=== PATIENT | male | born 1960 | race Caucasian/White ===

== ENCOUNTER 2017-07-13 12:32 | Emergency (ER) | payer OTHER ==
--- NOTE | ~2017-07-13 | CR243 ---
[facility] A Service of [facility] RADIOLOGY TEXT RESULTS PATIENT: MILTON DAVIS LOCATION: SED : 64 UNIT #: [id number] AGE: [address]: EFRAIN HOLLOWAY SEX: M ORDER DR: [id number] [place] [id number] E MR#: [id number] Acc #: [id number] NAME: MILTON DAVIS : 1960 SEX: M STUDY DATE/TIME: 07/13/2017 13:44 UNIT: SED ROOM: STUDY DESCRIPTION: CR Thoracic Spine 3 Views Attending Physician: Efrain Holloway Ordering Physician: Efrain Holloway MEDICAL IMAGING REPORT This report is preliminary unless electronic signature is present. EXAM Thoracic spine series 07/13/2017 1344 hours HISTORY 57-year-old man who fell down steps today at 11:00 a.m. Back pain since fall. COMPARISON None. FINDINGS AP, lateral and lateral swimmer's views are performed. The thoracic spine is normally aligned. There is multilevel endplate spurring in the mid and lower levels. There is no definite compression fracture seen. IMPRESSION Multilevel degenerative spurring with no definite fracture or subluxation. Dictated by... Senait Gale M.D. THIS IS AN ELECTRONICALLY VERIFIED REPORT Senait Gale M.D. at 07/14/2017 12:32 PM M/josr TD: 07/14/2017 10:43 JOB #: [id number] MEDICAL IMAGING REPORT [facility] A Service of [facility] RADIOLOGY TEXT RESULTS PATIENT: MILTON DAVIS LOCATION: SED : 64 UNIT #: [id number] AGE: [address]: EFRAIN HOLLOWAY SEX: M ORDER DR: Page 1 of 1
--- NOTE | ~2017-07-13 | CR150 ---
[facility]. [facility] A Service of [facility] RADIOLOGY TEXT RESULTS PATIENT: MILTON DAVIS LOCATION: SED : 64 UNIT #: [id number] AGE: [address]: EFRAIN HOLLOWAY SEX: M ORDER DR: [id number] [place] [id number] E MR#: [id number] Acc #: [id number] NAME: MILTON DAVIS : 1960 SEX: M STUDY DATE/TIME: 07/13/2017 13:44 UNIT: SED ROOM: STUDY DESCRIPTION: CR Hip Min 2 Views Lt Attending Physician: Efrain Holloway Ordering Physician: Efrain Holloway MEDICAL IMAGING REPORT This report is preliminary unless electronic signature is present. EXAM Left hip 07/13/2017 1344 hours HISTORY 57-year-old man who fell down steps at 11:00 a.m. today with left hip pain. COMPARISON None. FINDINGS AP pelvis and AP and frog lateral views of the left hip demonstrate overall normal bone density. There is no hip fracture or dislocation. Sacrum and sacroiliac joints appear normal. IMPRESSION No pelvic or hip fracture seen. Dictated by... Senait Gale M.D. THIS IS AN ELECTRONICALLY VERIFIED REPORT Senait Gale M.D. at 07/14/2017 12:32 PM KAREN/josr TD: 07/14/2017 10:45 JOB #: [id number] MEDICAL IMAGING REPORT Page 1 of 1
--- NOTE | ~2017-07-13 | CR156 ---
[facility]. [facility] A Service of [facility] RADIOLOGY TEXT RESULTS PATIENT: MILTON DAVIS LOCATION: SED : 64 UNIT #: [id number] AGE: [address]: EFRAIN HOLLOWAY SEX: M ORDER DR: [id number] [place] [id number] E MR#: [id number] Acc #: [id number] NAME: MILTON DAVIS : 1960 SEX: M STUDY DATE/TIME: 07/13/2017 UNIT: SED ROOM: STUDY DESCRIPTION: CR Humerus Min 2 View Lt Attending Physician: Efrain Holloway Ordering Physician: Eda Not Listed MEDICAL IMAGING REPORT This report is preliminary unless electronic signature is present. EXAM Left humerus 07/13/2017 1344 hours HISTORY Patient fell down steps today at 11:00 a.m. Left humerus pain since fall. COMPARISON None FINDINGS AP and lateral views of the humerus demonstrate overall normal bone density. There is no definite fracture or dislocation. IMPRESSION Negative left humerus. No fracture seen. Dictated by... Senait Gale M.D. THIS IS AN ELECTRONICALLY VERIFIED REPORT Senait Glae M.D. at 07/14/2017 12:32 PM Bertram TD: 07/14/2017 10:39 JOB #: [id number] MEDICAL IMAGING REPORT Page 1 of 1
[~2017-07-13 12:32] MED LIST: HYDROXYZINE HCL10 MG PO; METHAMPHETAMINE; SILVADENE TOP
[2017-07-13] MEDS ORDERED: NO MEDICATIONS (12:52)
== END 2017-07-13 15:09 | disposition home or self-care (01) ==
LOC: SED 12:32
DX: S29.012A Strain of muscle and tendon of back wall of thorax, initial encounter (principal); S70.02XA Contusion of left hip, initial encounter; S40.022A Contusion of left upper arm, initial encounter; Z88.8 Allergy status to other drugs, medicaments and biological substances; W10.9XXA Fall (on) (from) unspecified stairs and steps, initial encounter; Y92.9 Unspecified place or not applicable
CPT/HCPCS: 72072; 73060; 73502; 99283

== ENCOUNTER 2017-08-04 14:13 | Emergency (ER) | payer SELFPAY ==
--- NOTE | ~2017-08-04 | CT4 ---
[facility] A Service of [facility] RADIOLOGY TEXT RESULTS PATIENT: MILTON DAVIS LOCATION: SED : 64 UNIT #: [id number] AGE: [address]: Marixa Cordero MD SEX: M ORDER DR: [id number] [place] [id number] E MR#: [id number] Acc #: [id number] NAME: MILTON DAVIS : 1960 SEX: M STUDY DATE/TIME: 08/04/2017 16:15 UNIT: SED ROOM: STUDY DESCRIPTION: CT Abd and Pelv Wo Cont Attending Physician: Marixa Cordero M.D. Ordering Physician: Marixa Cordero M.D. Primary Care Physician: Primary Care Physician No MEDICAL IMAGING REPORT This report is preliminary unless electronic signature is present. EXAM CT abdomen and pelvis without contrast HISTORY Bleeding from penis x2 hours, urinary incontinence after 2 weeks. FINDINGS Axial images performed through the abdomen and pelvis without contrast. Multiplanar reconstructed images were reviewed at a workstation. This CT exam was performed with one or more of the following radiation dose reduction techniques: Automatic exposure control, adjustment of mA and/or kV according to patient size, and iterative reconstruction. ABDOMEN: Lung bases unremarkable. Liver, spleen unremarkable. The gallbladder contracted. Pancreas, kidneys and adrenal glands appear normal. GI tract remarkable for moderate amount of colonic stool. Retroperitoneum unremarkable. Appendix normal. The patient does have sigmoid diverticular changes but no evidence of diverticulitis. PELVIS: Bladder, prostate appear normal. Degenerative changes seen in the lower lumbar spine. IMPRESSION No acute intraabdominal or intrapelvic pathology identified. Dictated by... Mark Bhakta M.D. THIS IS AN ELECTRONICALLY VERIFIED REPORT Mark Bhakta M.D. at 08/05/2017 7:36 PM JMS/psc [facility] A Service of [facility] RADIOLOGY TEXT RESULTS PATIENT: MILTON DAVIS LOCATION: SED : 64 UNIT #: [id number] AGE: [address]: Marixa Cordero MD SEX: M ORDER DR: TD: 08/05/2017 14:36 JOB #: [id number] MEDICAL IMAGING REPORT Page 1 of 1
[~2017-08-04 14:13] MED LIST changes: +NO MEDICATIONS
[2017-08-04 17:05] LABS: URINE SOURCE CLEAN CATCH
[2017-08-04 17:06] LABS: MICRO INDICATED? YES; URINE APPEARANCE CLEAR; URINE BILIRUBIN NEG (NEG); URINE BLOOD 1+ (NEG); URINE COLOR ORANGE; URINE GLUCOSE 50 MG/DL (NORM); URINE KETONE TRACE (NEG); URINE LEUKOCYTE ESTERASE NEG (NEG); URINE NITRATE POS (NEG); URINE PROTEIN 3+ (NEG); URINE SPECIFIC GRAVITY >=1.030 (1.003-1.035)
[2017-08-04 17:08] LABS: CULTURE INDICATED? NO; URINE BACTERIA NEG (NEG); URINE GRANULAR CAST 0-2 /[HPF]; URINE HYALINE CAST 0-2 /[HPF]; URINE WBC NEG /[HPF] (0-5)
== END 2017-08-04 17:32 | disposition home or self-care (01) ==
LOC: SED 14:13
PROVIDERS: Student in an Organized Health Care Education/Training Program
DX: S30.812A Abrasion of penis, initial encounter (principal); R31.0 Gross hematuria; Z88.5 Allergy status to narcotic agent; X58.XXXA Exposure to other specified factors, initial encounter; Y92.9 Unspecified place or not applicable
CPT/HCPCS: 74176; 81003; 99284